=== PATIENT | male | born 1960 | race Native Hawaiian/Other Pacific Islander ===

== ENCOUNTER 2021-06-29 08:28 | Outpatient (CLI) | payer BC, OTHER ==
[~2021-06-29] VITALS: Ht 185.4 cm; Wt 110.3 kg
== END 2021-06-29 19:39 | disposition home or self-care (01) ==
LOC: INF 08:28
PROVIDERS: ATTEND Family Medicine
DX: Z23 Encounter for immunization (principal); U07.1 COVID-19
CPT/HCPCS: 96365; M0244